=== PATIENT | female | born 1970 | race Caucasian/White ===

== ENCOUNTER 2018-11-02 09:26 | Emergency (ER) | payer OTHER ==
[2018-11-02] MEDS ORDERED: MECLIZINE HCL 25 MG TAB PO ONE (10:09)
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
[2018-11-02 11:18] VITALS: BP 149/89
== END 2018-11-02 11:18 | disposition home or self-care (01) ==
DX: S06.0X0A Concussion without loss of consciousness, initial encounter (principal); W50.0XXA Accidental hit or strike by another person, initial encounter; Y93.23 Activity, snow (alpine) (downhill) skiing, snowboarding, sledding, tobogganing and snow tubing; Y92.9 Unspecified place or not applicable; Y99.9 Unspecified external cause status